=== PATIENT | male | born 1960 | race Caucasian/White ===

== ENCOUNTER 2022-03-02 18:10 | Inpatient (IN) ==
[2022-03-02] MEDS ORDERED: Ondansetron 4 MG/2 ML VIAL IVP PRN (21:49)
[2022-03-02] MEDS ORDERED: Acetaminophen 325 MG TABLET PO PRN (21:49)
[2022-03-02] MEDS ORDERED: Naloxone 0.4 MG/ML INJ IVP PRN (21:49)
[2022-03-02] MEDS ORDERED: *HR* LORazepam 2 MG/ML VIAL IVP PRN (22:58)
[2022-03-02] MEDS ORDERED: *HR* LORazepam 1 MG TABLET PO PRN (22:58)
[2022-03-02] MEDS: Folic Acid 1 MG TABLET PO SCH (23:32)
[2022-03-02] MEDS: 0.9 % Sodium Chloride 1,000 ML IVC SCH (23:32)
[2022-03-02] MEDS: Thiamine (B-1) 100 MG TABLET PO SCH (23:32)
[2022-03-03 04:06] LABS: Bilirubin,Urine Negative (Negative); Blood,Urine Negative (Negative); Clarity,Urine Clear (Clear); Color,Urine Light-Yellow (Yellow); Glucose,Urine (UA) Normal (Normal); Ketones,Urine Negative (Negative); Leukocyte Esterase,Urine Negative (Negative); Nitrite,Urine Negative (Negative); PH,Urine 5.5 pH Units (5.0-8.0); Protein,Urine Negative (Neg-Trace); Specific Gravity,Urine 1.011 (1.010-1.025); Urobilinogen,Urine Normal (Normal)
[2022-03-03 04:08] LABS: Prothrombin Time 11.3 Seconds (9.4-12.1)
[2022-03-03 04:20] LABS: Albumin 4.3 g/dL (3.5-5.7); Albumin/Globulin Ratio 1.7 (1.1-2.2); Basophils # 0.1 K/mcL (0.0-0.2); Basophils % 1.2 %; Bilirubin,Direct 0.2 mg/dL (0.0-0.2); Bilirubin,Indirect 0.4 mg/dL (0.0-1.0); Bilirubin,Total 0.6 mg/dL (0.3-1.0); Eosinophils # 0.1 K/mcL (0.0-0.6); Eosinophils % 2.1 %; Globulin 2.6 g/dL (2.4-3.5); Hematocrit 44.8 % (37.5-50.1); Hemoglobin 15.3 g/dL (12.9-16.9); Immature Granulocytes % 0.3 % (0-4); Lymphocytes # 1.3 K/mcL (0.6-4.6); Lymphocytes % 21.3 %; Mean Corpuscular HGB Conc 34.2 g/dL (31.6-35.5); Mean Corpuscular Hemoglobin 33.6 pg (28.0-33.3); Mean Corpuscular Volume 98.5 fL (83.0-100.0); Mean Platelet Volume 10.2 fL (9.4-12.4); Monocytes # 0.6 K/mcL (0.0-1.3); Monocytes % 9.9 %; Platelet Count 122 K/mcL (140-400); Red Blood Count 4.55 M/mcL (4.19-5.50); Red Cell Distribution Width 12.6 % (11.5-14.5); Segmented Neutrophils % 65.2 %; Total Protein 6.9 g/dL (6.4-8.9); White Blood Count 6.1 K/mcL (4.3-11.1)
[2022-03-03 04:23] LABS: BUN/Creatinine Ratio 7 (6-26); Blood Urea Nitrogen 5 mg/dL (8-23); C-Reactive Protein < 5 mg/L (Less than 10); Carbon Dioxide 22 mEq/L (23-29); Chloride 106 mEq/L (98-107); Glucose 64 mg/dL (70-105); Magnesium 1.9 mg/dL (1.6-2.6); Osmolality,Calculated 283 (280-300); Potassium 4.3 mEq/L (3.5-5.1); Sodium 139 mEq/L (136-145); Troponin I < 0.03 ng/mL (< 0.04)
[2022-03-03] MEDS: Vancomycin 1,500 MG/265 ML IV.SOLN IVPB SCH ×2 (06:09→17:37)
[2022-03-03] MEDS: 0.9 % Sodium Chloride 1,000 ML IVC SCH (09:02)
[2022-03-03] MEDS: Folic Acid 1 MG TABLET PO SCH (09:06)
[2022-03-03] MEDS: Thiamine (B-1) 100 MG TABLET PO SCH (09:06)
[2022-03-03] MEDS: cefTRIAXone 1,000 MG in 0.9 % Sodium Chloride Mini Bag 100 ML IVPB SCH (09:07)
[2022-03-03] MEDS ORDERED: *HR* LORazepam 1 MG TABLET PO PRN ×2 (16:44)
[2022-03-04 05:42] LABS: Basophils # 0.1 K/mcL (0.0-0.2); Basophils % 1.1 %; Eosinophils # 0.3 K/mcL (0.0-0.6); Eosinophils % 4.1 %; Hematocrit 44.6 % (37.5-50.1); Hemoglobin 15.8 g/dL (12.9-16.9); Immature Granulocytes % 0.5 % (0-4); Lymphocytes # 0.9 K/mcL (0.6-4.6); Lymphocytes % 14.6 %; Mean Corpuscular HGB Conc 35.4 g/dL (31.6-35.5); Mean Corpuscular Hemoglobin 33.9 pg (28.0-33.3); Mean Corpuscular Volume 95.7 fL (83.0-100.0); Mean Platelet Volume 10.3 fL (9.4-12.4); Monocytes # 0.8 K/mcL (0.0-1.3); Monocytes % 12.7 %; Neutrophils # 4.3 K/mcL (1.6-8.9); Platelet Count 116 K/mcL (140-400); Red Blood Count 4.66 M/mcL (4.19-5.50); White Blood Count 6.4 K/mcL (4.3-11.1)
[2022-03-04 06:04] LABS: BUN/Creatinine Ratio 7 (6-26); Blood Urea Nitrogen 6 mg/dL (8-23); Calcium 9.6 mg/dL (8.6-10.3); Carbon Dioxide 23 mEq/L (23-29); Chloride 102 mEq/L (98-107); Glucose 98 mg/dL (70-105); Osmolality,Calculated 278 (280-300); Sodium 135 mEq/L (136-145)
[2022-03-04] MEDS: Vancomycin 1,500 MG/265 ML IV.SOLN IVPB SCH ×2 (06:24→18:13)
[2022-03-04] MEDS: Thiamine (B-1) 100 MG TABLET PO SCH (07:35)
[2022-03-04] MEDS: Folic Acid 1 MG TABLET PO SCH (07:35)
[2022-03-04] MEDS: cefTRIAXone 1,000 MG in 0.9 % Sodium Chloride Mini Bag 100 ML IVPB SCH (08:52)
[2022-03-04 09:45] LABS: C-Reactive Protein < 5 mg/L (Less than 10)
[2022-03-04 17:38] VITALS: O2SAT 97
[2022-03-05 04:23] LABS: Basophils # 0.1 K/mcL (0.0-0.2); Basophils % 1.4 %; Eosinophils # 0.4 K/mcL (0.0-0.6); Eosinophils % 5.4 %; Hematocrit 43.5 % (37.5-50.1); Hemoglobin 15.3 g/dL (12.9-16.9); Immature Granulocytes % 0.5 % (0-4); Lymphocytes # 1.1 K/mcL (0.6-4.6); Lymphocytes % 16.3 %; Mean Corpuscular HGB Conc 35.2 g/dL (31.6-35.5); Mean Corpuscular Hemoglobin 34.2 pg (28.0-33.3); Mean Corpuscular Volume 97.3 fL (83.0-100.0); Mean Platelet Volume 10.4 fL (9.4-12.4); Monocytes # 0.9 K/mcL (0.0-1.3); Monocytes % 14.4 %; Neutrophils # 4.1 K/mcL (1.6-8.9); Platelet Count 114 K/mcL (140-400); Red Blood Count 4.47 M/mcL (4.19-5.50); Red Cell Distribution Width 11.9 % (11.5-14.5); White Blood Count 6.5 K/mcL (4.3-11.1)
[2022-03-05 04:40] LABS: BUN/Creatinine Ratio 7 (6-26); Blood Urea Nitrogen 6 mg/dL (8-23); Calcium 9.5 mg/dL (8.6-10.3); Carbon Dioxide 26 mEq/L (23-29); Chloride 100 mEq/L (98-107); Glucose 105 mg/dL (70-105); Osmolality,Calculated 280 (280-300); Potassium 3.5 mEq/L (3.5-5.1); Sodium 136 mEq/L (136-145)
[2022-03-05] MEDS: Vancomycin 1,500 MG/265 ML IV.SOLN IVPB SCH (06:13)
[2022-03-05] MEDS: cefTRIAXone 1,000 MG in 0.9 % Sodium Chloride Mini Bag 100 ML IVPB SCH (08:49)
[2022-03-05] MEDS: Thiamine (B-1) 100 MG TABLET PO SCH (08:53)
[2022-03-05] MEDS: Folic Acid 1 MG TABLET PO SCH (08:53)
[2022-03-05 11:45] VITALS: BP 146/82; PULSE 82; TEMP 98
== END 2022-03-05 16:20 | disposition home or self-care (01) | DRG 541 ==
LOC: 4WAOSI → SUATTDRO 20:31
PROVIDERS: ADMIT Pharmacist; ATTEND Internal Medicine